=== PATIENT | male | born 1990 | race Caucasian/White ===

== ENCOUNTER 2020-08-03 13:04 | Emergency (ER) | payer OTHER | END 2020-08-03 13:45 | disposition home or self-care (01) | LOC: FER 13:04 | DX: S00.91XA Abrasion of unspecified part of head, initial encounter (principal); W22.8XXA Striking against or struck by other objects, initial encounter; Y92.009 Unspecified place in unspecified non-institutional (private) residence as the place of occurrence of the external cause | CPT/HCPCS: 99283 ==

== ENCOUNTER 2021-10-24 09:24 | Emergency (ER) | payer OTHER | END 2021-10-24 10:25 | disposition home or self-care (01) | LOC: FER 09:24 | DX: S60.417A Abrasion of left little finger, initial encounter (principal); Z23 Encounter for immunization; W22.8XXA Striking against or struck by other objects, initial encounter; Y92.009 Unspecified place in unspecified non-institutional (private) residence as the place of occurrence of the external cause | CPT/HCPCS: 90471; 90715; 99283 ==